=== PATIENT | male | born 1985 | race African-American/Black ===

== ENCOUNTER 2019-04-08 13:39 | Inpatient (IN) | payer MEDICAID, OTHER ==
[~2019-04-08] VITALS: Ht 167.6 cm; Wt 139.8 kg
[2019-04-08] MEDS ORDERED: ONDANSETRON HCL 4MG/2ML INJ IV STA (14:05)
[2019-04-08] MEDS ORDERED: MORPHINE SULFATE 4 MG/ML CPJ (NOT FOR IM USE) IV STA (14:05)
[2019-04-08] MEDS ORDERED: FAMOTIDINE 20MG/2ML VIAL IV ONE (14:15)
[2019-04-08] MEDS ORDERED: ACETAMINOPHEN 325MG TABLET PO ONE (14:15)
[2019-04-08] MEDS ORDERED: SODIUM CHLORIDE 0.9% 1000ML BAG (SEPSIS BOLUS) IV ONE (14:15)
[2019-04-08 14:31] LABS: BASOPHILS % 0.3 % (0.0-2.0); EOSINOPHILS % 0.1 % (0.0-5.0); HEMATOCRIT. 39.1 % (42.0-52.0); HEMOGLOBIN. 12.9 g/dL (14.0-18.0); LYMPHOCYTES % 7.6 % (20.0-50.0); MEAN CORPUSCULAR HEMOGLOBIN 28.4 pg (28.0-32.0); MEAN CORPUSCULAR VOLUME 85.9 fL (80.0-94.0); MEAN PLATELET VOLUME 6.9 fl (7.4-10.4); PLATELET 324 x1000/uL (130-400); RED BLOOD CELL COUNT 4.55 mill/uL (4.7-6.1)
[2019-04-08 14:38] LABS: CHLORIDE 101 mEq/L (98-107)
[2019-04-08 14:39] LABS: PROTHROMBIN TIME 10.7 sec (9.6-11.0)
[2019-04-08] MEDS ORDERED: PIPERACILLIN/TAZ 3.375G PREMIX 50 ML IV ONE (14:45)
[2019-04-08] MEDS ORDERED: IBUPROFEN 800MG TABLET PO ONE (17:00)
[2019-04-08 19:00] VITALS: BP 96/55
[2019-04-08] MEDS ORDERED: CHLO25TA2 PO (20:23)
[2019-04-08] MEDS ORDERED: LISI-604 PO (20:23)
[2019-04-08] MEDS ORDERED: ONDANSETRON HCL 4MG/2ML INJ IV PRN (20:30)
[2019-04-08] MEDS: ACETAMINOPHEN 325MG TABLET PO PRN (21:57)
[2019-04-08] MEDS: SODIUM CHLORIDE 0.9% 1,000 ML IV SCH (22:15)
[2019-04-08] MEDS: METRONIDAZOLE 500 MG PREMIX 100 ML IV SCH (22:41)
[2019-04-09] VITALS: BP 144/93
[2019-04-09] MEDS: LEVOFLOXACIN 500MG PREMIX 100 ML IV SCH ×2 (00:15→20:57)
[2019-04-09] MEDS: ZOLPIDEM TARTRATE 5MG TABLET PO PRN ×2 (01:36→23:45)
[2019-04-09 04:00] VITALS: BP 115/71
[2019-04-09] MEDS: METRONIDAZOLE 500 MG PREMIX 100 ML IV SCH ×3 (06:01→22:56)
[2019-04-09] MEDS: SODIUM CHLORIDE 0.9% 1,000 ML IV SCH ×2 (06:02→14:16)
[2019-04-09 08:00] VITALS: BP 114/68
[2019-04-09] MEDS: ENOXAPARIN 40MG/0.4ML SYR SUBCUT SCH ×2 (10:32→20:57)
[2019-04-09 12:00] VITALS: BP 116/79
[2019-04-09] MEDS: ACETAMINOPHEN 325MG TABLET PO PRN (16:14)
[2019-04-09 16:27] LABS: BASOPHILS % 0.3 % (0.0-2.0); EOSINOPHILS % 0.1 % (0.0-5.0); HEMATOCRIT. 38.1 % (42.0-52.0); HEMOGLOBIN. 12.6 g/dL (14.0-18.0); MEAN CORPUSCULAR HEMOGLOBIN 28.7 pg (28.0-32.0); MEAN CORPUSCULAR VOLUME 86.9 fL (80.0-94.0); MEAN PLATELET VOLUME 7.4 fl (7.4-10.4); MONOCYTES % 6.4 % (2.0-8.0); NEUTROPHILS % 78.2 % (40.0-76.0); PLATELET 274 x1000/uL (130-400); RED BLOOD CELL COUNT 4.38 mill/uL (4.7-6.1); RED CELL DISTRIBUTION WIDTH 16.9 % (11.6-14.6)
[2019-04-09 16:36] LABS: CHLORIDE 104 mEq/L (98-107)
[2019-04-09] MEDS ORDERED: KETOROLAC 30MG/ML VIAL IV PRN (18:15)
[2019-04-09 20:00] VITALS: BP 146/97
[2019-04-09] MEDS ORDERED: CLONIDINE 0.1MG TABLET PO PRN (21:00)
[2019-04-10 00:30] VITALS: BP 127/80
[2019-04-10] MEDS: SODIUM CHLORIDE 0.9% 1,000 ML IV SCH ×2 (02:16→09:47)
[2019-04-10 04:00] VITALS: BP 125/77
[2019-04-10] MEDS: METRONIDAZOLE 500 MG PREMIX 100 ML IV SCH (05:10)
[2019-04-10] MEDS: MORPHINE SULFATE 2 MG/ML CPJ (NOT FOR IM USE) IV PRN ×2 (05:12→09:36)
[2019-04-10 08:38] VITALS: BP 111/78
[2019-04-10] MEDS: ENOXAPARIN 40MG/0.4ML SYR SUBCUT SCH (09:31)
[2019-04-10 12:22] VITALS: BP 109/76
[2019-04-10 14:22] VITALS: BP 109/76
== END 2019-04-10 15:10 | disposition home or self-care (01) | DRG 720 ==
LOC: ER 14:34 → 6WST 16:56 → EDBEDREQ 16:58 → ENRESERV 18:06
PROVIDERS: ADMIT Internal Medicine; ATTEND Internal Medicine
DX: A41.9 Sepsis, unspecified organism (principal); E87.1 Hypo-osmolality and hyponatremia; D64.9 Anemia, unspecified; E66.9 Obesity, unspecified; K52.9 Noninfective gastroenteritis and colitis, unspecified; I10 Essential (primary) hypertension; Z79.899 Other long term (current) drug therapy; Z90.49 Acquired absence of other specified parts of digestive tract; Z68.42 Body mass index [BMI] 45.0-49.9, adult; Z71.3 Dietary counseling and surveillance
CPT/HCPCS: 36415; 71045; 74176; 76705; 80048; 83605; 84145; 84484; 87015; 87045; 87427; 87449; 87493; 93005; 99285; J1650; J1885; J1956; J2270; J2405; J2543; J3490; J7030; J7042

== ENCOUNTER 2019-05-13 21:53 | Emergency (ER) | payer MEDICAID ==
[~2019-05-13] VITALS: Ht 170.2 cm; Wt 145.0 kg
[~2019-05-13 21:53] MED LIST: CHLO25TA2 PO; LISI-604 PO
[2019-05-14] MEDS ORDERED: SODIUM CHLORIDE 0.9% 1,000 ML IV NR (00:11)
[2019-05-14] MEDS ORDERED: FAMOTIDINE 20MG/2ML VIAL IV NR (00:11)
[2019-05-14] MEDS ORDERED: ONDANSETRON HCL 4MG/2ML INJ IV NR (00:11)
[2019-05-14 00:39] LABS: HEMATOCRIT. 38.3 % (42.0-52.0); HEMOGLOBIN. 12.9 g/dL (14.0-18.0); MEAN CORPUSCULAR HEMOGLOBIN 28.8 pg (28.0-32.0); MEAN CORPUSCULAR VOLUME 85.7 fL (80.0-94.0); MEAN PLATELET VOLUME 6.9 fl (7.4-10.4); PLATELET 323 x1000/uL (130-400); RED BLOOD CELL COUNT 4.47 mill/uL (4.7-6.1); RED CELL DISTRIBUTION WIDTH 17.2 % (11.6-14.6)
[2019-05-14 00:44] LABS: CHLORIDE 104 mEq/L (98-107)
[2019-05-14 01:24] LABS: PLATELET ESTIMATE NORMAL
[2019-05-14] MEDS ORDERED: METOCLOPRAMIDE HCL 10MG/2ML VIAL IV NR (02:00)
[2019-05-14 02:07] LABS: CLARITY URINE CLEAR (CLEAR); COLOR URINE YELLOW (YELLOW); KETONES URINE TRACE (NEGATIVE); LEUKOCYTE ESTERASE URINE NEGATIVE (NEGATIVE); NITRITE URINE NEGATIVE (NEGATIVE); OCCULT BLOOD URINE NEGATIVE (NEGATIVE); PH URINE 7.5 (4.5-8.0); PROTEIN URINE 1+ (NEGATIVE); SPECIFIC GRAVITY URINE 1.026 (1.005-1.030); UROBILINOGEN URINE 0.2 E.U./dL (0.2-1.0)
[2019-05-14] MEDS ORDERED: ONDANSETRON 4MG ODT PO ONE (04:00)
[2019-05-14 04:10] VITALS: BP 128/71
== END 2019-05-14 04:15 | disposition home or self-care (01) ==
LOC: ER 21:53
DX: R11.2 Nausea with vomiting, unspecified (principal); R10.13 Epigastric pain; I10 Essential (primary) hypertension; Z90.49 Acquired absence of other specified parts of digestive tract
CPT/HCPCS: 36415; 80053; 81003; 83690; 85025; 96361; 96374; 96375; 99283; J2405; J2765; J3490; Q0162; Z7610